=== PATIENT | female | born 1965 | race Caucasian/White ===

== ENCOUNTER 2020-05-07 08:51 | Outpatient (CLI) | payer OTHER, SELFPAY ==
--- NOTE | 2020-05-07 08:58 | XR_ITS ---
WS: [id number] EXAM: Chest: PA and lateral DATE OF EXAMINATION: 05/07/2020, 0947 hours COMPARISON: Chest x-ray from 05/03/2020 and 01/27/2014 HISTORY: Patient is 55 years old with chest pain. FINDINGS: The heart size is normal. The mediastinal contours are normal. Pulmonary vascularity is within norm al limits. The lungs are clear. No effusion, or pneumothorax. Bone density is normal in appearance. Postsurgical changes are seen in the left upper abdomen. XR/XR chest 2V* [id number] IMPRESSION: NO ACUTE PULMONARY DISEASE.
--- NOTE | 2020-05-07 08:58 | NM_ITS ---
WS: [id number] NUCLEAR MEDICINE VENTILATION/PERFUSION LUNG SCAN HISTORY: CHEST PAIN COMPARISON: Chest radiograph 05/07/2020 TECHNIQUE: Ventilation: 31.3 mCi of Technetium 99 DTPA aerosol inhaled. Perfusion: 5.4 mCi of technetium 99m MAA IV. Normal uptake of the radiotracer on the perfusion and ventilatory portions of the examination. There are no matched or unmatched defects. NM/NM pul vent and perfus* [id number] IMPRESSION: Normal VQ scan.
== END 2020-05-07 08:52 | disposition home or self-care (01) ==
LOC: RAD 08:55
PROVIDERS: PCP Family Medicine; Visit Provider Family Medicine
DX: R79.89 Other specified abnormal findings of blood chemistry (principal); R07.9 Chest pain, unspecified
CPT/HCPCS: 71046; 78014; A9540; A9567

== ENCOUNTER 2022-04-25 10:02 | Outpatient (CLI) | payer OTHER, SELFPAY ==
--- NOTE | 2022-04-25 10:06 | MM_ITS ---
WS: [id number] BILATERAL SCREENING DIGITAL TOMOSYNTHESIS MAMMOGRAM WITH CAD HISTORY: SCREENING COMPARISON: 04/02/2019 and 03/19/2018 Bilateral CC and MLO views with tomosynthesis and synthetic mammography submitted. Computer aided det ection analyzed. Breast composition: There are scattered areas of fibroglandular density. No suspicious masses, microc alcifications or architectural distortion. MM/[place] [id number] IMPRESSION: BI-RADS: 1-Negative FOLLOW UP: 1 Year Follow-up
== END 2022-04-25 10:03 | disposition home or self-care (01) ==
LOC: RAD 10:03
PROVIDERS: PCP Family Medicine; Visit Provider Family Medicine
DX: Z12.31 Encounter for screening mammogram for malignant neoplasm of breast (principal)
CPT/HCPCS: 77063; 77067

== ENCOUNTER 2023-05-15 14:32 | Outpatient (CLI) | payer OTHER, SELFPAY ==
--- NOTE | 2023-05-15 14:56 | MM_ITS ---
WS: [id number] BILATERAL 3D TOMOSYNTHESIS DIGITAL SCREENING MAMMOGRAPHY WITH CAD CLINICAL INFORMATION: SCREENING HISTORY: Screening mammogram. No current complaints. COMPARISON: 04/25/2022 TECHNIQUE: Bilateral CC and MLO views. FINDINGS: Scattered fibroglandular densities bilaterally. No suspicious focal mass, asymmetry, calcifications, or architectural distortion. No evidence of malignancy. Incidental punctate calcifications. IMPRESSION: MM/[place] [id number] BI-RADS: 2-Benign FOLLOW UP: 1 Year Follow-up Recommend return to annual screening mammography.
== END 2023-05-15 14:33 | disposition home or self-care (01) ==
LOC: RAD 14:37 → MOBLMAM 14:55
PROVIDERS: PCP Family Medicine; Visit Provider Family Medicine
DX: Z12.31 Encounter for screening mammogram for malignant neoplasm of breast (principal)
CPT/HCPCS: 77063; 77067

== ENCOUNTER → 2023-06-26 10:32 | Outpatient (BNVA) | payer OTHER, SELFPAY | PROVIDERS: PCP Family Medicine; Referring Provider Family Medicine; Visit Provider Nurse Practitioner Women's Health | DX: Z12.4 Encounter for screening for malignant neoplasm of cervix (principal) | CPT/HCPCS: 87624 ==